=== PATIENT | female | born 1970 | race Caucasian/White ===

== ENCOUNTER 2023-01-01 15:17 | Emergency (ER) | payer MEDICAID ==
[~2023-01-01] VITALS: Ht 165.1 cm; Wt 64.0 kg
[2023-01-01 15:20] VITALS: BP 130/88
[2023-01-01] MEDS ORDERED: SODIUM CHLORIDE 0.9% 1,000 ML IV ONE (16:30)
[2023-01-01 17:48] LABS: BASOPHILS % 0.9 % (0.0-2.0); EOSINOPHILS % 0.4 % (0.0-5.0); HEMATOCRIT. 40.4 % (36.0-48.0); HEMOGLOBIN. 13.4 g/dL (12.0-16.0); LYMPHOCYTES % 51.4 % (20.0-50.0); MEAN CORPUSCULAR HEMOGLOBIN 30.1 pg (28.0-32.0); MEAN CORPUSCULAR VOLUME 90.8 fL (81.0-99.0); MEAN PLATELET VOLUME 8.1 fl (7.4-10.4); MONOCYTES % 3.5 % (2.0-8.0); NEUTROPHILS % 43.8 % (40.0-76.0); PLATELET 251 x1000/uL (130-400); RED BLOOD CELL COUNT 4.45 mill/uL (4.2-5.4); RED CELL DISTRIBUTION WIDTH 16.4 % (11.6-14.6)
[2023-01-01 17:53] LABS: CHLORIDE 112 mEq/L (98-107)
[2023-01-01 17:56] LABS: HCG SCREEN NEGATIVE
[2023-01-01 18:10] LABS: ETHANOL BLOOD 427 mg/dL
== END 2023-01-01 20:50 | disposition left against medical advice (07) ==
LOC: ER 15:17 → EDBD 15:17 → ER 20:50
DX: F10.129 Alcohol abuse with intoxication, unspecified (principal); E87.0 Hyperosmolality and hypernatremia; R94.5 Abnormal results of liver function studies; Y90.8 Blood alcohol level of 240 mg/100 ml or more
CPT/HCPCS: 36415; 70450; 80053; 80320; 84703; 85025; 99284; J7030; Z7610; G0480

== ENCOUNTER 2023-04-09 00:38 | Emergency (ER) | payer MEDICAID ==
[~2023-04-09] VITALS: Ht 149.9 cm; Wt 52.0 kg
[2023-04-09 00:41] VITALS: O2SAT 97
[2023-04-09] MEDS ORDERED: SODIUM CHLORIDE 0.9% 1,000 ML IV ONE (01:45)
[2023-04-09 02:28] LABS: EOSINOPHILS % 2.6 % (0.0-5.0); HEMATOCRIT. 36.1 % (36.0-48.0); HEMOGLOBIN. 11.7 g/dL (12.0-16.0); LYMPHOCYTES % 42.1 % (20.0-50.0); MEAN CORPUSCULAR HEMOGLOBIN 28.1 pg (28.0-32.0); MEAN CORPUSCULAR VOLUME 86.4 fL (81.0-99.0); MEAN PLATELET VOLUME 7.8 fl (7.4-10.4); MONOCYTES % 4.7 % (2.0-8.0); NEUTROPHILS % 49.6 % (40.0-76.0); PLATELET 202 x1000/uL (130-400); RED BLOOD CELL COUNT 4.17 mill/uL (4.2-5.4); RED CELL DISTRIBUTION WIDTH 16.9 % (11.6-14.6)
[2023-04-09 02:39] LABS: CHLORIDE 113 mEq/L (98-107)
[2023-04-09 02:50] LABS: HCG SCREEN NEGATIVE
[2023-04-09 03:17] LABS: ETHANOL BLOOD 435 mg/dL (-10)
[2023-04-09 06:25] VITALS: BP 133/89; PULSE 95; RESP 18; TEMP 98.2
[2023-04-09 19:57] LABS: *AMPHETAMINES SCREEN URINE NEGATIVE (NEGATIVE); *BARBITURATES SCREEN URINE NEGATIVE (NEGATIVE); *BENZODIAZEPINES SCREEN URINE PRESUMTIVE POSITIVE (NEGATIVE); *COCAINE SCREEN URINE NEGATIVE (NEGATIVE); CANNABINOID URINE SCREEN NEGATIVE (NEGATIVE); METHADONE URINE SCREEN NEGATIVE (NEGATIVE); OPIATES URINE SCREEN NEGATIVE (NEGATIVE); PHENCYCLIDINE URINE SCREEN NEGATIVE (NEGATIVE)
== END 2023-04-09 06:25 | disposition home or self-care (01) ==
LOC: ER 00:38
DX: F10.129 Alcohol abuse with intoxication, unspecified (principal); Y90.8 Blood alcohol level of 240 mg/100 ml or more
CPT/HCPCS: 80053; 80305; 80307; 80329; 80320; 84703; 83605; 85025; 36415; 70450; 93005; 96360; 99285; J7030; G0480

== ENCOUNTER 2023-04-09 18:52 | Emergency (ER) | payer MEDICAID ==
[~2023-04-09] VITALS: Ht 157.5 cm; Wt 59.0 kg
[2023-04-09 18:59] VITALS: BP 132/81; PULSE 90; RESP 14; TEMP 97.1; O2SAT 95
== END 2023-04-09 20:55 | disposition left against medical advice (07) ==
LOC: ER 18:52
DX: F10.20 Alcohol dependence, uncomplicated (principal); I10 Essential (primary) hypertension
CPT/HCPCS: 81025; 99283

== ENCOUNTER 2023-06-08 11:31 | Emergency (ER) | payer MEDICAID ==
[~2023-06-08] VITALS: Ht 165.1 cm; Wt 68.0 kg
[2023-06-08 12:09] VITALS: BP 116/76; PULSE 95; RESP 16; TEMP 98.1; O2SAT 100
[2023-06-08 14:02] LABS: CHLORIDE 110 mEq/L (98-107); INDEX HEMOLYSI 1 (1-3); INDEX ICTERIC 1 (1-4); INDEX LIPEMIC 1 (1-3); POTASSIUM 3.6 mEq/L (3.5-5.1); SODIUM 148 mEq/L (136-145)
[2023-06-08 14:06] LABS: PROTHROMBIN TIME 10.7 sec (9.6-11.0)
[2023-06-08 14:11] LABS: ALANINE AMINOTRANSFERASE 49 IU/L (13-61); ALBUMIN 3.7 g/dL (3.4-5.0); ASPARTATE AMINOTRANSFERASE 49 IU/L (15-37); BILIRUBIN TOTAL 0.2 mg/dL (0.1-1.0); CALCIUM 8.2 mg/dL (8.5-10.1); CARBON DIOXIDE 32 mEq/L (21-32); CREATININE 0.5 mg/dL (0.6-1.3); GLUCOSE 118 mg/dL (70-105); PROTEIN TOTAL 7.5 g/dL (6.0-8.3); UREA NITROGEN BLOOD 7 mg/dL (7-21)
[2023-06-08 14:16] LABS: BASOPHILS % 0.9 % (0.0-2.0); EOSINOPHILS % 2.2 % (0.0-5.0); HEMATOCRIT. 35.7 % (36.0-48.0); HEMOGLOBIN. 11.5 g/dL (12.0-16.0); LYMPHOCYTES % 56.4 % (20.0-50.0); MEAN CORPUSCULAR HEMOGLOBIN 26.8 pg (28.0-32.0); MEAN CORPUSCULAR HGB CONC 32.2 g/dL (31.0-37.0); MEAN CORPUSCULAR VOLUME 83.3 fL (81.0-99.0); MEAN PLATELET VOLUME 7.3 fl (7.4-10.4); MONOCYTES % 5.4 % (2.0-8.0); NEUTROPHILS % 35.1 % (40.0-76.0); PLATELET 219 x1000/uL (130-400); RED BLOOD CELL COUNT 4.28 mill/uL (4.2-5.4); RED CELL DISTRIBUTION WIDTH 20.1 % (11.6-14.6)
[2023-06-08 15:10] LABS: ETHANOL BLOOD 431 mg/dL (-10)
== END 2023-06-08 16:10 | disposition home or self-care (01) ==
LOC: ER 11:43
DX: F10.129 Alcohol abuse with intoxication, unspecified (principal); I10 Essential (primary) hypertension; Z98.890 Other specified postprocedural states; Y90.8 Blood alcohol level of 240 mg/100 ml or more
CPT/HCPCS: 36415; 80053; 80320; 85025; 99283; G0480

== ENCOUNTER 2023-06-08 17:03 | Emergency (ER) | payer MEDICAID ==
[~2023-06-08] VITALS: Ht 167.6 cm; Wt 65.0 kg
[2023-06-08] MEDS ORDERED: SODIUM CHLORIDE 0.9% 1,000 ML IV ONE (17:30)
[2023-06-08 17:34] VITALS: BP 144/100; PULSE 84; RESP 16; TEMP 98.5; O2SAT 97
== END 2023-06-08 20:00 | disposition left against medical advice (07) ==
LOC: ER 17:03
DX: Z53.21 Procedure and treatment not carried out due to patient leaving prior to being seen by health care provider (principal)
CPT/HCPCS: 99281; J7030